=== PATIENT | female | born 1980 | race Hispanic/Latino ===

== ENCOUNTER 2016-12-01 05:32 | Emergency (ER) | payer SELFPAY ==
[2016-12-01] MEDS ORDERED: MOTRIN PO ONE (06:32)
--- NOTE | 2016-12-01 06:38 | Emergency Department Report ---
<STEVEN PATEL - Last Filed: 12/01/16 07:05> ED ENT HPI - General Chief complaint: Earache Stated complaint: EAR AND HEAD PAIN Time Seen by Provider: 12/01/16 06:20 Source: patient Mode of arrival: Ambulatory Limitations: No Limitations - History of Present Illness Initial comments: 36-year-old female past medical history thalassemia minor, history of multiple transfusions, cholecystectomy, history of eustachian tubes as a child presents with complaint of approximately 3 weeks of right-sided earache and intermittent sore throat. Patient denies fevers or chills speaking in full sentences no audible wheezing or stridor no trismus. Patient states that she was released from [facility] 72 hours ago and has not received medical attention for sore throat. Patient denies abdominal pain chest pain palpitations or shortness of breath. Denies nausea or vomiting. MD complaint: sore throat Onset/Timin -: week(s) Location: throat Severity: moderate Severity scale (0 -10): 5 Quality: aching Consistency: constant Improves with: none Worsens with: none Associated Symptoms: sore throat - Related Data Previous Rx's Medication Instructions Recorded Last Taken Type Cephalexin [Keflex] 500 mg PO Q12HR #20 cap 12/01/16 Unknown Rx Allergies Allergy/AdvReac Type Severity Reaction Status Date / Time No Known Allergies Allergy Unverified 12/01/16 06:42 ED Dental HPI - General Chief complaint: Earache Stated complaint: EAR AND HEAD PAIN Time Seen by Provider: 12/01/16 06:20 Source: patient Mode of arrival: Ambulatory Limitations: No Limitations - Related Data Previous Rx's Medication Instructions Recorded Last Taken Type Cephalexin [Keflex] 500 mg PO Q12HR #20 cap 12/01/16 Unknown Rx Allergies Allergy/AdvReac Type Severity Reaction Status Date / Time No Known Allergies Allergy Unverified 12/01/16 06:42 ED Review of Systems ROS: Stated complaint: EAR AND HEAD PAIN Other details as noted in HPI Constitutional: denies: chills, fever Eyes: denies: eye pain, eye discharge, vision change ENT: throat pain. denies: ear pain Respiratory: denies: cough, shortness of breath, wheezing Cardiovascular: denies: chest pain, palpitations Endocrine: no symptoms reported Gastrointestinal: denies: abdominal pain, nausea, diarrhea Genitourinary: denies: urgency, dysuria, discharge Musculoskeletal: denies: back pain, joint swelling, arthralgia Skin: denies: rash, lesions Neurological: denies: headache, weakness, paresthesias Psychiatric: denies: anxiety, depression Hematological/Lymphatic: denies: easy bleeding, easy bruising ED Past Medical Hx - Past Medical History Previous Medical History?: Yes Hx Seizures: Yes Additional medical history: Blood disorder - Surgical History Past Surgical History?: No - Social History Smoking Status: Never Smoker Substance Use Type: None - Medications Home Medications: Home Medications Medication Instructions Recorded Confirmed Last Taken Type Cephalexin [Keflex] 500 mg PO Q12HR #20 cap 12/01/16 Unknown Rx ED Physical Exam - General Limitations: No Limitations General appearance: alert, in no apparent distress - Head Head exam: Present: atraumatic, normocephalic - Eye Eye exam: Present: normal appearance, PERRL, EOMI - ENT ENT exam: Present: mucous membranes moist - Expanded ENT Exam Expanded Throat exam: Positive: tonsillar erythema (slight tonsillar petechia/exudated on exam) - Neck Neck exam: Present: normal inspection, lymphadenopathy (possible right cervical adenopathy) - Respiratory Respiratory exam: Present: normal lung sounds bilaterally. Absent: respiratory distress - Cardiovascular Cardiovascular Exam: Present: regular rate, normal rhythm. Absent: systolic murmur, diastolic murmur, rubs, gallop - GI/Abdominal GI/Abdominal exam: Present: soft, normal bowel sounds - Extremities Exam Extremities exam: Present: normal inspection - Back Exam Back exam: Present: normal inspection - Neurological Exam Neurological exam: Present: alert, oriented X3 - Psychiatric Psychiatric exam: Present: normal affect, normal mood - Skin Skin exam: Present: warm, dry, intact, normal color. Absent: rash ED Course Vital Signs 12/01/16 12/01/16 12/01/16 05:38 07:00 08:38 Temperature 98.9 F Pulse Rate 72 71 Respiratory 17 16 18 Rate Blood Pressure 130/68 Blood Pressure 132/84 [Right] O2 Sat by Pulse 98 99 Oximetry ED Medical Decision Making - Medical Decision Making A/P: Pharyngitis versus mononucleosis 1-strep swab sent, basic labs sent 2- 3- 4- Critical care attestation.: If time is entered above; I have spent that time in minutes in the direct care of this critically ill patient, excluding procedure time. ED Disposition Disposition: DC-01 TO HOME OR SELFCARE Condition: Stable Instructions: Pharyngitis (ED) Additional Instructions: rest hydrate motrin or tylenol for pain med as ordered today until gone Prescriptions: Cephalexin [Keflex] 500 mg PO Q12HR #20 cap Referrals: PRIMARY CAREMD [Primary Care Provider] - 3-5 Days LUIS ZHENG JR, MD [Staff Physician] - 3-5 Days <OMA NUGENT - Last Filed: 12/01/16 08:22> ED Course - Reevaluation(s) Reevaluation #1: 12/01/16 08:25 nad on reexam mono neg shift to left- will put on anbx fu w pcp taking po and ambulatory on dc ED Medical Decision Making - Lab Data Result diagrams: 12/01/16 06:43 12/01/16 06:43 ED Disposition Is pt being admited?: No Does the pt Need Aspirin: No Time of Disposition: 08:23 <CARMINE PALOMINO - Last Filed: 12/01/16 14:22> ED Medical Decision Making - Lab Data Result diagrams: 12/01/16 06:43 12/01/16 06:43
[2016-12-01 07:17] LABS: Basophils % (Auto) 0.9 % (0.0-1.8); Eosinophils % (Auto) 0.1 % (0.0-4.3); Hematocrit 33.6 % (30.3-42.9); Hemoglobin 10.3 gm/dl (10.1-14.3); Mean Corpuscular HGB Conc 31 % (30-34); Platelet Count 401 K/mm3 (140-440); Red Cell Distribution Width 15.6 % (13.2-15.2); White Blood Count 8.2 K/mm3 (4.5-11.0)
[2016-12-01 07:36] LABS: Alanine Aminotransferase 11 units/L (7-56); Albumin 4.4 g/dL (3.9-5); Albumin/Globulin Ratio 1.5 %; Anion Gap 16 mmol/L; BUN/Creatinine Ratio 19; Blood Urea Nitrogen 15 mg/dL (7-17); Calcium 9.3 mg/dL (8.4-10.2); Carbon Dioxide 26 mmol/L (22-30); Chloride 100.9 mmol/L (98-107); Glucose 98 mg/dL (65-100); Potassium 4.2 mmol/L (3.6-5.0); Sodium 139 mmol/L (137-145); Total Protein 7.4 g/dL (6.3-8.2)
[2016-12-01 07:43] LABS: Bilirubin,Direct < 0.2 mg/dL (0-0.2)
[2016-12-01 07:58] LABS: Mean Corpuscular Hemoglobin 19 pg (28-32); Mean Corpuscular Volume 61 fl (79-97)
[2016-12-01 08:39] VITALS: BP 132/84
[2016-12-01 10:19] LABS: Alkaline Phosphatase 60 units/L (35-129)
== END 2016-12-01 08:39 | disposition home or self-care (01) ==
LOC: ED 05:32
DX: H92.01 Otalgia, right ear (principal); J02.9 Acute pharyngitis, unspecified; R56.9 Unspecified convulsions
CPT/HCPCS: 36415; 80048; 80074; 85025; 86308; 87116; 87430; 99283